=== PATIENT | male | born 1980 | race African-American/Black ===

== ENCOUNTER → 2020-06-25 | Outpatient (CLI) | payer OTHER, BC ==
[2014-05-25 11:29] VITALS: BP 153/69
[~2020-06-25] MED LIST: ASPI-630 PO; ASPI325T8 PO; GABA300C18 PO; HYDR-2763 PO; LOSA100T14 PO; PROM25TA10 PO; SEMA0.25 SQ; TIZA4TAB2 PO
== END ==
LOC: LAB 10:22
PROVIDERS: ATTEND Orthopaedic Surgery
DX: Z01.812 Encounter for preprocedural laboratory examination (principal); S83.271A Complex tear of lateral meniscus, current injury, right knee, initial encounter; Z88.0 Allergy status to penicillin; X58.XXXA Exposure to other specified factors, initial encounter; Y93.89 Activity, other specified; Y92.89 Other specified places as the place of occurrence of the external cause; Y99.8 Other external cause status; Z20.828 Contact with and (suspected) exposure to other viral communicable diseases
CPT/HCPCS: U0003

== ENCOUNTER 2020-06-28 06:02 | Day surgery (SDC) | payer BC, MEDICARE ==
--- NOTE | 2020-06-27 14:15 | PDOC1 ---
History and Physical Date of Admission Date of Admission 06/28/2020 Identification/Chief Complaint Chief Complaint Right knee pain Source Source: Chart review, Patient History of Present Illness History of Present Illness 40-year-old man who injured his knee exiting the shower and twisted his knee. Since then the knee gives out on him. Stabbing pain on the lateral side of the knee and constant ache. Resting helps a little. Weightbearing makes it worse. He takes gabapentin 3 times daily for neuropathic pain. He tried Tylenol and ibuprofen for this knee. 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 MRI showed lateral meniscus tear. He tried a hinged knee brace. He was scheduled for prostate biopsy on 06/19/2020 due to elevated PSA. He had to stop taking the ibuprofen due to the prostate Past Medical History Cardiovascular: HTN Past Surgical History Past Surgical History Left knee arthroscopy 2006 Social History Smoke: <1 pack per day ALCOHOL: occassional Allergies Allergies: Coded Allergies: Penicillins (Unverified Allergy, Intermediate, Swelling, 06/27/20) ROS Review of System Classic ROS: Constitutionalfevers Denies . CARDIOLOGY: Leg edemanone. RESPIRATORY: Shortness of breathdenies. GASTROENTEROLOGY: Weight gaindenies. MUSCULOSKELETAL: New arthralgiasdenies. New Myalgiasnone. Muscle weakness denies. DERMATOLOGY: Rashdenies. NEUROLOGY: Paresthesia/numbnessdenies. ENDOCRINOLOGY: Poor wound healingno. HEMATOLOGY/LYMPH: Abnormal bruisingdenies. ALLERGY: Anaphylaxisdenies. Physical Exam General: Alert, Oriented X3 HEENT: Atraumatic Lungs: Normal air movement Abdomen: Soft Extremities: No cyanosis, Normal pulses, Other (The RIGHT knee shows normal alignment, no masses and no effusion. There is tenderness at the lateral joint line and mildly tender over the fibular head with a positive lateral Edwin's test. The lateral joint line shows no tenderness. There is slight posterior tenderness although I cannot palpable the well defined cyst on MRI. Range of motion is 0-135 degrees. There is trace patellofemoral crepitus. Edwin's test is positive. There is lateral joint line pain with deep flexion and especially with rotation of the tibia. The knee is stable to varus and valgus stress without subluxation or laxity. The ACL feels intact on Odin testing. Normal Dial Test. Muscle strength is normal (5/5) for quadriceps and hamstrings, and muscle tone is normal. The skin has multiple spotty discolorations from possible chickenpox. No open sores. Skin is normal with no other scars, rashes, lesions or ulcers. Light touch sensation is intact. No edema and no varicosities. Dorsalis pedis pulse is intact and capillary refill is normal) Neuro: Normal speech Psych/Mental Status: Mental status NL, Mood NL Images Images Report reviewed and images independently reviewed of the knee x-rays from 05/07/2020. The right currently most symptomatic knee shows minimal degenerative change, and possible Janee-Stieda lesion likely related to a remote injury. The left knee has severe osteoarthritis with narrowing, malalignment, near [id number]-vs-svvl contact, multiple osteophytes, and lateral tibial sclerosis. There is also a benign-appearing osteochondroma on [place] [id number] IMAGING REPORT Signed PATIENT: CARLINE PENA ACCOUNT: [id number] : 1980 LOCATION: [facility] AGE: 40 SEX: M EXAM STATUS: REG CLI ORD. PHYSICIAN: VERONIKA EVANS Jr. PAC REASON: RIGHT KNEE PAIN PROCEDURE: KNEE STANDING BILAT AP EXAM: KNEE STANDING BILAT AP, KNEE RIGHT 2V. HISTORY: Right knee pain. COMPARISON: None. FINDINGS: On the right, a Janee-Stieda lesion is incidentally noted. There is a small to moderate joint effusion. No fractures are identified. Joint spaces and alignment are maintained. On the left, an osteochondroma along the medial aspect of the tibial metaphysis measures 2.2 cm and appears benign. The lateral compartmental joint space is mostly effaced. There is moderate osteophytosis medially and laterally. There is mild exaggeration of the normal valgus and lateral subluxation of the tibia. IMPRESSION: 1. Small to moderate joint effusion on the right. 2. Moderate to severe lateral compartment predominant osteoarthritis on the left. 3. 2.2 cm benign-appearing osteochondroma along the medial aspect of the left proximal tibial metaphysis. Electronically signed by: Segrio Gutiérrez MD (05/07/2020 2:38 PM) [facility] DICTATED AND SIGNED BY: COREY GUTIÉRREZ MD DATE: 05/07/20 9216 CC: VERONIKA EVANS Jr. PAC; PCP,NO Reports reviewed, Images independently reviewed of the right knee MRI from [facility] on 05/23/20. Unfortunately these are on a very weak MRI magnet, I believe 0.3 Celia so fine details are not visualized. Despite that the popliteal cyst is easily visualized on series 5 image 11. The medial meniscus appears intact on those views. The posterior horn of the lateral meniscus possibly indicates a tear on series 5 image 21. The lateral meniscus tear is better visualized on series 3, images 17 and 18. Posterolateral corner structures appear mostly intact on series 3 image 12-15, mild sprains with no avulsion. MRI RIGHT KNEE WITHOUT CONTRAST: TECHNIQUE: 1.5T MR: Multiplanar/multisequence noncontrast knee protocol. Motion artifact degrades image quality. INDICATION: 40-year-old male with lateral and posterior right knee pain after a fall in April of this year. COMPARISON: FINDINGS: JOINT CAPSULE: Physiologic fluid is present within the joint capsule. Septated popliteal cyst is evident measuring up to 3 x 3.7 x 5.7 cm. MEDIAL COMPARTMENT: The medial meniscus exhibits normal signal intensity and morphology. Medial femoral condylar and tibial plateau hyaline cartilage and bone marrow are within normal limits. No fracture, osteochondral defect or avascular necrosis is present. LATERAL COMPARTMENT: There is a horizontal tear along the inner third of the body lateral meniscus that may slightly extend to the superior surface of the posterior horn. Fissuring of the central weightbearing tibial plateau cartilage is evident and up to full-thickness given the presence of cystlike osseous change demonstrated on coronal image 18 and sagittal image 23 of series 5. Apart from chondromalacia related osseous change, no other marrow abnormalities are identified. PATELLOFEMORAL JOINT: Full thickness cartilage loss with underlying edema like and cystlike osseous change is greatest at the lateral facet and median ridge. Lesser fissuring of the medial patellar facet. There is also fissuring of the inferior medial trochlear cartilage without underlying osseous changes. The medial and lateral retinacular complex are intact. LIGAMENTS: ACL degeneration without tear. Thickening of the proximal superficial MCL likely sequela of old injury without acute tear. Edema along medial meniscofemoral ligament suggests grade 1 injury or sprain. PCL intact without evidence of injury. There is fluid signal abnormality of the biceps femoris tendon insertion best appreciated on coronal image 12 of series 3 consistent with a partial thickness or grade 2 injury. Heterogeneous increased signal proximal fibular collateral ligament consistent with sprain or low-grade partial injury. Iliotibial band intact. Heterogeneity and increased signal at the myotendinous junction of the popliteus tendon consistent with grade 1 injury or strain without high-grade tear. Heterogeneity of the popliteofibular ligament consiste nt with grade 2 or partial thickness injury. Posterolateral capsular edema. Lateral gastrocnemius head is preserved without abnormality. The extensor mechanism exhibits normal signal and morphology. SOFT TISSUE: Mild proximal soleus edema contributing to the patients posterolateral corner injury. Other muscles demonstrate normal bulk and signal. No soft tissue mass. Neurovascular structures are unremarkable. IMPRESSION: 1. Horizontal tear body lateral meniscus. 2. Posterolateral corner injury as discussed above greatest involving biceps femoris insertion and popliteofibular ligament, grade 2 or partial injuries. Correlate with clinical exam for degree of stability. 3. Grade 1 injury or sprain medial meniscofemoral ligament. 4. 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 5. Septated popliteal cyst. Electronically Signed By: SONAL CYR MD on 2020-05-23 09:54:03. VTE Prophylaxis Ordered VTE Prophylaxis Devices: Yes VTE Pharmacological Prophylaxi: Yes Assessment/Plan Assessment/Plan On the right knee he has a complex lateral meniscus tear, and lateral compartment symptoms on examination. He has been in a brace and tried other nonoperative treatment, but has persistent lateral joint symptoms. There is no gross instability of the lateral ligaments on exam, and I believe an arthroscopic meniscectomy will be useful. Unfortunately the lateral meniscus tear is a precursor to get osteoarthritis, similar to what has occurred on his left knee. He has no arthritis currently on the right knee, so arthroscopic meniscectomy is my recommendation. We discussed potential risks such as bleeding, infection, neurovascular injury, blood clots, progressive arthritis, continued pain, or other potential surgical or anesthetic complications. All of his questions about surgery were answered and he desires to proceed at a mutually convenient date. My recommendation for the Tam's cyst is observation and meniscectomy, often treating the internal pathology of the knee will resolve the cyst. We discussed risks of surgical excision of the cyst which have a high chance of neurovascular complications and is generally not recommended. He agrees with that plan. He is here today for elective right knee arthroscopy and meniscectomy Justifications for Admission Other Justification LISSET MEDEL MD Jun 27, 2020 14:15
[~2020-06-28] VITALS: Ht 182.9 cm; Wt 131.1 kg
[~2020-06-28 06:02] MED LIST changes: -ASPI-630 PO; -ASPI325T8 PO; +CLINDAMYCIN 900MG PREMIX 50 ML IV PRN; -HYDR-2763 PO; -PROM25TA10 PO
[2020-06-28] MEDS ORDERED: IV RINGERS,LACTATED 1000ML 1,000 ML IV SCH (07:00)
[2020-06-28] MEDS ORDERED: ONDANSETRON PF 4 MG/2 ML VIAL. IV PRN (07:00)
[2020-06-28] MEDS ORDERED: fentaNYL PF VIAL 100 MCG/2 ML VIAL IV PRN (07:00)
[2020-06-28] MEDS ORDERED: LIDOCAINE 1% PF 2 ML VIAL. ID PRN (07:00)
[2020-06-28] MEDS ORDERED: EPINEPHrine VIAL 30 MG/30 ML VIAL ONE (07:01)
[2020-06-28] MEDS ORDERED: BUPIVACAINE-EPI 0.25% 30 ML VIAL KIT. ONE ×2 (07:01)
[2020-06-28] MEDS ORDERED: LIDOCAINE 2% PF 5 ML VIAL. ONE (07:38)
[2020-06-28] MEDS ORDERED: fentaNYL PF VIAL 100 MCG/2 ML VIAL ONE ×2 (07:38→09:41)
[2020-06-28] MEDS ORDERED: ONDANSETRON PF 4 MG/2 ML VIAL. ONE (07:38)
[2020-06-28] MEDS ORDERED: DEXAMETHASONE SOD PHOS 4 MG/ML VIAL ONE (07:38)
[2020-06-28] MEDS ORDERED: MIDAZOLAM HCL/PF 2 MG/2 ML VIAL. ONE (07:38)
[2020-06-28] MEDS ORDERED: PROPOFOL 10 MG/ML (20ML) VIAL. IV ONE ×2 (07:38→08:58)
[2020-06-28] MEDS ORDERED: SEVOFLURANE 61 TO 120 MINUTES. IH ONE (09:11)
--- NOTE | 2020-06-28 09:33 | PDOC4 ---
Operative Note Operative Note Date of Procedure: June 28, 2020 Preoperative Diagnosis: right knee lateral meniscus tear Postoperative Diagnosis: complex tear of lateral meniscus, current injury, right knee, initial encounter, S83.271A Procedures Performed: right knee arthroscopy, surgical, with meniscectomy, LATERAL, including meniscal shaving, including debridement/shaving of articular cartilage (chondroplasty) CPT 87232 Surgeon: Lisset Sandy MD Administrative Liaison: MARCELLA Fisher Anesthesia: General Estimated Blood Loss: 10 mL Specimens: none Drains: none Complications: none Tourniquet time: 26 minutes at 300 mm Hg Indications for Procedure: The patient is a 40-year-old with right knee pain, unrelieved with nonoperative treatment. Exam and MRI are consistent with a meniscus tear. We talked about the risks and benefits of proceeding with an arthroscopic procedure. We talked about potential risks of ongoing pain, progressive arthritis, bleeding, infection, blood clots, or other potential surgical or anesthetic complications. All of the patient's questions about surgery were answered and he desired to proceed. Written consent was obtained. Description of Operation: The patient was identified in the preoperative holding area. The correct right knee was marked by me. The patient was taken to the operating room, where a general anesthetic was used. Preoperative antibiotics were given intravenously. A time-out procedure was performed A tourniquet was placed on the upper right thigh. Local anesthetic 20 mL of 0.25% bupivacaine was injected using sterile technique into the knee joint. The limb was prepared circumferentially with ChloraPrep solution and sterile waterproof arthroscopy drapes were applied. The limb was exsanguinated with an Esmarch bandage and the tourniquet was inflated. Lateral and medial arthroscopy portals were established. The medial meniscus was normal and stable to probing.The medial tibiofemoral joint showed normal articular surfaces so no chondroplasty was required.The intercondylar notch was free of loose bodies, and the ACL was intact. The lateral tibiofemoral joint showed a complex unrepairable posterior horn lateral meniscus tear, with oblique and horizontal fibers, extending primarily to the superior articular surface, with unstable fragments. Partial meniscectomy was performed of the posterior one third of the meniscus with basket forceps and a motorized shaver, tapering the resection into the middle one third of the meniscus. The lateral articular surfaces showed normal articular surfaces on the femur, but the tibia laterally showed chondromalacia [place]bridge grade II, so a shaving chondroplasty was performed removing loose unstable fragments of articular cartilage. The patellofemoral joint showed chondromalacia Out[place]bridge grade III, and a shaving chondroplasty was performed removing unstable fragments of cartilage with the shaver. The suprapatellar pouch, medial and lateral gutters were free of loose bodies. Copious irrigation was used to drain all meniscal and chondral fragments, and the knee was drained of fluid. The portals were closed with #3-0 Prolene interrupted sutures. Additional local anesthetic, 30 mL of 0.25% bupivacaine with epinephrine was injected. A bulky sterile dressing was applied and the tourniquet was released. Needle and sponge counts were correct and there were no apparent complications. LISSET SANDY MD Jun 28, 2020 09:33
[2020-06-28] MEDS: fentaNYL PF VIAL 100 MCG/2 ML VIAL IV PRN ×2 (09:45→09:55)
[2020-06-28] MEDS ORDERED: HYDR-2763 PO (09:50)
[2020-06-28] MEDS ORDERED: ASPI-630 PO (09:51)
[2020-06-28] MEDS ORDERED: PROCHLORPERAZINE 10 MG/2 ML VIAL. ONE (09:52)
[2020-06-28] MEDS ORDERED: MORPHINE SULFATE 2 MG/ML VIAL. ONE (09:52)
[2020-06-28] MEDS ORDERED: PROM25TA10 PO (09:52)
[2020-06-28] MEDS: PROCHLORPERAZINE 10 MG/2 ML VIAL. IV PRN ×2 (09:56→10:14)
[2020-06-28] MEDS: MORPHINE SULFATE 2 MG/ML VIAL. IV PRN ×2 (09:59→10:07)
[2020-06-28] MEDS ORDERED: HYDROcodone/APAP 7.5/325MG 1 TAB TABLET PO PRN ×2 (10:00→10:15)
[2020-06-28] MEDS ORDERED: ASPI325T8 PO (10:06)
[2020-06-28] MEDS ORDERED: HYDROmorphone 2 MG/ML VIAL ONE (10:10)
[2020-06-28] MEDS: HYDROmorphone 2 MG/ML VIAL IV PRN ×3 (10:15→10:37)
[2020-06-28 10:50] VITALS: BP 142/71
== END 2020-06-28 11:20 | disposition home or self-care (01) ==
LOC: SURG 06:02
PROVIDERS: ATTEND Orthopaedic Surgery
DX: S83.271A Complex tear of lateral meniscus, current injury, right knee, initial encounter (principal); M94.261 Chondromalacia, right knee; I10 Essential (primary) hypertension; E11.9 Type 2 diabetes mellitus without complications; G47.30 Sleep apnea, unspecified; F17.210 Nicotine dependence, cigarettes, uncomplicated; Z79.82 Long term (current) use of aspirin; Z79.84 Long term (current) use of oral hypoglycemic drugs; Z79.899 Other long term (current) drug therapy; Z98.890 Other specified postprocedural states; Z72.89 Other problems related to lifestyle; Z88.0 Allergy status to penicillin; X58.XXXA Exposure to other specified factors, initial encounter; Y93.89 Activity, other specified; Y92.89 Other specified places as the place of occurrence of the external cause; Y99.8 Other external cause status
CPT/HCPCS: 29881; 82962; J0171; J0780; J1100; J1170; J2250; J2270; J2405; J2704; J3010; J3490; J7120